=== PATIENT | male | born 1990 | race Hispanic/Latino ===

== ENCOUNTER 2018-04-28 22:27 | Emergency (ER) | payer SELFPAY ==
[2018-04-28] MEDS ORDERED: Morphine 4 MG/ML VIAL ONE (23:02)
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
[2018-04-28 23:14] LABS: #Eosinphils 0.1 thou/uL (0.0-0.7); #Lymphocytes 2.4 thou/uL (1.20-3.40); #Monocytes 0.7 thou/uL (0.11-0.59); #Neutrophils 6.9 thou/uL (1.40-6.50); %Basophils 0.3 % (0.0-1.0); %Eosinophils 1.4 % (0.0-10.0); %Lymphocytes 23.5 % (21.0-51.0); %Monocytes 6.6 % (0.0-10.0); %Neutrophils 68.2 % (42.0-75.0); Hemoglobin 13.5 g/dL (14.0-18.0); Mean Corpuscular HGB CONC 33.7 g/dL (32.0-36.0); Mean Corpuscular Hemoglobin 31.2 pg (27.0-31.0); Mean Corpuscular Volume 92.6 fL (78.0-98.0); Mean Platelet Volume 7.3 fL (7.4-10.4); Platelet Count 255 thou/uL (130-400); Red Blood Cell (RBC) Count 4.34 mill/uL (4.70-6.10); White Blood Cell (WBC) Count 10.2 thou/uL (4.8-10.8)
[2018-04-28 23:33] LABS: ALT (SGPT) 50 U/L (8-55); AST (SGOT) 25 U/L (5-34); Albumin 4.5 g/dL (3.5-5.0); Alkaline Phosphatase 81 U/L (40-150); Anion Gap 14 mmol/L (10-20); BUN (Urea Nitrogen) 14 mg/dL (8.9-20.6); Bilirubin, Total 0.3 mg/dL (0.2-1.2); Calc. Creatinine Clearance 0 mL/min (70-130); Carbon Dioxide 26 mmol/L (22-29); Chloride 105 mmol/L (98-107); Estimated GFR-MDRD Greater than 90; Globulin 3.6 g/dL (2.4-3.5); Glucose 114 mg/dL (70-105); Potassium 3.9 mmol/L (3.5-5.1); Protein, Total 8.1 g/dL (6.0-8.3); Sodium 141 mmol/L (136-145)
[2018-04-28] MEDS ORDERED: HYDROcodone/Acetaminophen 5/325 mg Tablet ONE (23:46)
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
== END 2018-04-29 00:45 | disposition home or self-care (01) ==
LOC: ERS 22:27
DX: S80.212A Abrasion, left knee, initial encounter (principal); S99.911A Unspecified injury of right ankle, initial encounter; V89.2XXA Person injured in unspecified motor-vehicle accident, traffic, initial encounter
CPT/HCPCS: 71045; 80053; 85025; 96361; 96374; J2270

== ENCOUNTER 2018-07-29 20:59 | Emergency (ER) | payer OTHER, SELFPAY ==
[2018-07-29] MEDS ORDERED: Ketorolac Tromethamine 30 MG/ML VIAL ONE (21:59)
[2018-07-29] MEDS ORDERED: Diazepam 5 MG TAB ONE (22:05)
[2018-07-29 22:57] LABS: Bilirubin Negative (Negative); Blood, Urine Negative (Negative); Clarity CLEAR (Clear); Glucose, Urine (Dipstick) Negative (Negative); Leukocyte Negative (Negative); Nitrite Negative (Negative); Protein, Urine (Dipstick) Trace mg/dL (Neg-Trace); pH, Urine 5.5 (5.0-9.0)
== END 2018-07-30 00:06 | disposition home or self-care (01) ==
LOC: ERS 20:59
DX: M54.5 Low back pain (principal)
CPT/HCPCS: 81003; 96372; J1885

== ENCOUNTER 2025-03-25 12:20 | Emergency (ER) | payer SELFPAY ==
[2025-03-25] MEDS ORDERED: Ketorolac Tromethamine 30 MG (1 mL) VIAL ONE (12:26)
[2025-03-25] MEDS ORDERED: HYDROcodone/Acetaminophen 10/325 mg Tablet ONE (12:36)
== END 2025-03-25 13:38 | disposition home or self-care (01) ==
LOC: ERS 12:20
DX: S39.012A Strain of muscle, fascia and tendon of lower back, initial encounter (principal); X58.XXXA Exposure to other specified factors, initial encounter
CPT/HCPCS: 72100; 96372; 99283; J1885